=== PATIENT | female | born 1965 | race Caucasian/White ===

== ENCOUNTER → 2017-10-18 | Outpatient (CLI) | payer OTHER ==
--- NOTE | 2017-10-18 16:49 | RADIOLOGY IMAGING REPORT ---
FACILITY: [facility] PATIENT NAME: Rosalind Rosas : 1965 MR: [id number] V: [id number] EXAM DATE: ORDERING PHYSICIAN: FRANCES CARDENAS TECHNOLOGIST: Location: [facility] Patient: Rosalind Rosas : 1965 Visit/Account:[id number] Date of Sevice: 10/18/2017 EXAMINATION: Abdominal ultrasound complete: 10/18/2017 8:30 AM HISTORY: Some nausea. Lump/mass under tip of the sternum.. COMPARISON STUDIES: none. FINDINGS: Gallbladder: Multiple small gallstones. No wall thickening or edema. Negative sonographic Galan sign . Liver: Slightly increased echogenicity compared to the right kidney consistent with some fatty infilt ration. Common duct: 8mm. No visible overlies choledocholithiasis. Pancreas: negative Spleen: negative Kidneys: negative Upper abdominal aorta and IVC: negative Ascites: none Imaging at the tip of the sternum does show some anterior curvature of the xiphoid. No other solid or cystic mass. No adenopathy. IMPRESSION: 1. Cholecystolithiasis. There are no sonographic findings of acute cholecystitis but the CBD is mildl y dilated. No visualized choledocholithiasis. 2. Convex anterior curvature of the xiphoid might potentially correlate with the area of palpable con cern. No discrete soft tissue mass otherwise evident. Report Dictated By: Fab Hui MD at 10/18/2017 4:41 PM Report E-Signed By: Fab Hui MD at 10/18/2017 4:44 PM [id number]
== END ==
LOC: US 08:29
PROVIDERS: ATTEND Naturopath
DX: K80.10 Calculus of gallbladder with chronic cholecystitis without obstruction (principal); K76.0 Fatty (change of) liver, not elsewhere classified
CPT/HCPCS: 76700

== ENCOUNTER 2018-05-14 14:19 | Emergency (ER) | payer OTHER ==
--- NOTE | 2018-05-14 14:26 | ER Report ---
History and Physical Time Seen By MD: 14:25 Allergies: Coded Allergies: No Known Drug Allergies (Unverified , 05/14/18) Depart Departure Condition: Stable Disposition: HOME OR SELF-CARE RADHA FENTON May 14, 2018 14:26
[2018-05-14] MEDS ORDERED: ENT KIT ONE (14:29)
[2018-05-14] MEDS ORDERED: TRANEXAMIC AC 1000 MG/10ML SDV ONE (14:30)
--- NOTE | 2018-05-14 14:43 | ER Report ---
History and Physical Time Seen By MD: 14:42 Hx. 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 Patient initially apply direct pressure without relief of bleeding. Patient denies taking anticoagulants. Patient was well-appearing denies lightheadedness, headache or blurred vision, dizziness. Patient is hemodynamically stable at time of evaluation. REVIEW OF SYSTEMS: Constitutional: Well-appearing, no acute distress ENT: Active bleeding from the left nare Allergies: Coded Allergies: No Known Drug Allergies (Unverified , 05/14/18) Constitutional Vital Sign - Last 24 Hours 05/14/18 15:45 Pulse 78 Resp 16 B/P (MAP) 132/72 (92) Pulse Ox 94 O2 Delivery Room Air Physical Exam General Appearance: No acute distress, no airway compromise Eyes: Pupils equal and round no injection. ENT: Active bleeding from the left nare Skin: No rashes or lesions. DIFFERENTIAL DIAGNOSIS: After history and physical exam differential diagnosis was considered for anterior versus posterior epistaxis Medical Decision Making ED Course/Re-evaluation ED Course Patient is a 53-year-old female here with anterior epistaxis after lightly touching the outside of her left nare. Initially phenylephrine was sprayed into the left and direct pressure was applied and then tranexamic acid was applied to a cotton plaget and a nose clamp was applied for approximately 15 minutes which created hemostasis of the nose. Patient was advised on techniques to stop the nosebleed if it recurs and the patient voiced understanding of plan. Patient remained hemodynamically stable throughout course of treatment. Decision to Disposition Date: May 14, 2018 Decision to Disposition Time: 15:45 Depart Departure Latest Vital Signs Vital Signs Date Time Temp Pulse Resp B/P (MAP) Pulse Ox O2 Delivery O2 Flow Rate FiO2 05/14/18 15:45 78 16 132/72 (92) 94 Room Air Impression: Primary Impression: Epistaxis Condition: Improved Disposition: HOME OR SELF-CARE Patient Instructions: Nosebleed (ED) Additional Instructions: Please avoid touching her nose for the next day to day and a half. You may use nasal saline for moisturizer. Please return promptly if you're unable to stop bleeding in the case of a rebleed. In the case a you do encounter rebleed, plea se apply direct pressure and pinch the nose closed for at least 10-15 minutes. EVERARDO COCHRAN DO May 14, 2018 14:43
[2018-05-14 15:45] VITALS: BP 132/72
[2018-05-14] MEDS ORDERED: PHENYLEPHRINE 0.5% 15 ML BTL ONE (16:00)
== END 2018-05-14 15:45 | disposition home or self-care (01) ==
LOC: ER 14:33
DX: R04.0 Epistaxis (principal)
CPT/HCPCS: 99282

== ENCOUNTER 2018-05-23 06:05 | Emergency (ER) | payer OTHER ==
--- NOTE | 2018-05-23 06:06 | ER Report ---
History and Physical Time Seen By MD: 06:06 HPI/ROS CHIEF COMPLAINT: Recurrent Epistaxis of the left nare HISTORY OF PRESENT ILLNESS: Patient is a 53-year-old female here with complaints of epistaxis of the left nare which occurred during the night. Patient attempted to apply direct pressure several times at home without success. Patient reports having slowed bleeding by time of arrival to the emergency department. Patient denies headache, blurred vision, lightheadedness, weakness, syncopal episode. Patient was well-appearing, hemodynamically stable at time of evaluation. REVIEW OF SYSTEMS: Constitutional: No fever, no chills. Eyes: No pallor ENT: Scant bleeding from the left nasal passage Cardiovascular: No chest pain, no palpitations. Respiratory: No cough, no shortness of breath. Gastrointestinal: No abdominal pain, no vomiting. Skin: No rashes. Neurological: No headache. Allergies: Coded Allergies: No Known Drug Allergies (Unverified , 05/14/18) Home Meds No Active Prescriptions or Reported Meds Constitutional Vital Sign - Last 24 Hours 05/23/18 06:12 Temp 99.2 Pulse 93 Resp 17 B/P (MAP) 159/104 Pulse Ox 95 O2 Delivery Room Air Physical Exam General Appearance: The patient is alert, has no immediate need for airway protection and no signs of toxicity. No acute distress Eyes: Pupils equal and round no pallor or injection. ENT, Mouth: Dry blood surrounding the left nasal passage, scant bleeding from the left nasal passage Neurological: No focal neurological deficits Skin: Warm and dry, no rashes. DIFFERENTIAL DIAGNOSIS: After history and physical exam differential diagnosis was considered for anterior versus posterior nosebleed Medical Decision Making ED Course/Re-evaluation ED Course Patient is a 53-year-old female here with complaints of epistaxis from the left nasal passage which is recurrent, the last bleed being on May 14. Patient had attempted multiple times to stop bleed with direct pressure without success. Tranexamic acid was applied to a cotton pledget was applied to the nasal passage with successful hemostasis. Patient was given left over tranexamic acid and a syringe without needle and cotton pledgets for home administration if needed. Patient was stable at time of discharge. Decision to Disposition Date: May 23, 2018 Decision to Disposition Time: 07:00 Depart Departure Latest Vital Signs Vital Signs Date Time Temp Pulse Resp B/P (MAP) Pulse Ox O2 Delivery O2 Flow Rate FiO2 9/20/18 06:12 99.2 93 17 159/104 95 Room Air Impression: Primary Impression: Epistaxis Condition: Improved Disposition: HOME OR SELF-CARE New Scripts No Active Prescriptions or Reported Meds Patient Instructions: Nosebleed (ED) Additional Instructions: You may apply direct pressure if you experience a rebleed. If bleeding does not stop at that time, you may apply tranexamic acid to the nose for 15 minutes. EVERARDO COCHRAN DO May 23, 2018 06:06
[2018-05-23] MEDS ORDERED: TRANEXAMIC AC 1000 MG/10ML SDV ONE (06:10)
[2018-05-23 06:12] VITALS: BP 159/104
== END 2018-05-23 07:10 | disposition home or self-care (01) ==
LOC: ER 06:28
DX: R04.0 Epistaxis (principal)
CPT/HCPCS: 99282